=== PATIENT | female | born 1980 | race Caucasian/White ===

== ENCOUNTER 2024-04-03 07:56 | Emergency (ER) | payer OTHER ==
[~2024-04-03] VITALS: Ht 157.5 cm; Wt 86.2 kg
[2024-04-03 08:11] VITALS: BP 144/67; TEMP 98.2
[2024-04-03] MEDS ORDERED: AMOX875T2 PO (08:36)
[2024-04-03] MEDS ORDERED: AMOXICILLIN TRIHYDRATE 250 MG CAPSULE ONE (08:41)
[2024-04-03] MEDS: AMOXICILLIN TRIHYDRATE 500 MG CAPSULE PO ONE (08:42)
[2024-04-03] MEDS ORDERED: IBUPROFEN 600 MG TABLET ONE (08:42)
[2024-04-03] MEDS: IBUPROFEN 400 MG TABLET PO ONE (08:42)
[2024-04-03 08:47] VITALS: O2SAT 96
== END 2024-04-03 08:49 | disposition home or self-care (01) ==
LOC: ER 08:02
DX: J02.9 Acute pharyngitis, unspecified (principal)